=== PATIENT | male | born 1995 | race Caucasian/White ===

== ENCOUNTER 2018-04-15 15:54 | Emergency (ER) | payer OTHER, SELFPAY ==
[2018-04-15] VITALS (8 sets, daily range): BP systolic 108–124; BP diastolic 55–69; PULSE 65–82; RESP 11–17; TEMP 36.8–37.5; O2SAT 97–100; BMI 20.3
--- NOTE | 2018-04-15 17:59 | DI.CT.S_ITS ---
PROCEDURE: CT HEAD/BRAIN WO CON INDICATIONS: Syncopal episode TECHNIQUE: Noncontrast 4.5 mm thick angled axial sections acquired from the foramen magnum to the vertex, with coronal and sagittal reformats. For radiation dose reduction, the following was used: automated exposure control, adjustment of mA and/or kV according to patient size. COMPARISON: None. FINDINGS: Image quality: Excellent. CSF spaces: Basal cisterns are patent. No extra-axial fluid collections. Ventricles are normal in size and shape. Brain: No midline shift. No intracranial masses or hemorrhage. Trimble-white matter interface is normal. Skull and face: Calvarium and visualized facial bones are intact, without suspicious lesions. Sinuses: Visualized sinuses and mastoids are clear. IMPRESSION: No acute intracranial disease process. Dictated by: Ester Gan MD, PhD on 04/15/2018 at 18:46 Approved by: Ester Gan MD, PhD on 04/15/2018 at 18:48
--- NOTE | 2018-04-15 17:59 | DI.RAD.S_ITS ---
PROCEDURE: XR CHEST 1V INDICATIONS: Syncopal episode TECHNIQUE: One view of the chest was acquired. COMPARISON: None. FINDINGS: Surgical changes and devices: None. Lungs and pleura: No pleural effusions or pneumothorax. Lungs are clear. Mediastinum: Mediastinal contours appear normal. Heart size is normal. Bones and chest wall: No suspicious bony lesions. Overlying soft tissues appear unremarkable. IMPRESSION: No acute cardiopulmonary disease process. Dictated by: Ester Gan MD, PhD on 04/15/2018 at 18:45 Approved by: Ester Gan MD, PhD on 04/15/2018 at 18:45
[2018-04-15] MEDS: SODIUM CHLORIDE 0.9% 1,000 ML 1000 ML IV (18:35)
[2018-04-15 18:51] LABS: Add Manual Diff / Slide Review NO; Basophils Percent Auto 0.2 % (0-2); Eosinophils Percent Auto 0.2 % (2-4); Hematocrit 42.6 % (41-53); Hemoglobin 14.6 g/dL (13.5-17.5); Lymphocytes Percent Auto 6.5 % (25-40); Mean Corpuscular HGB Conc 34.3 % (30-36); Mean Corpuscular Hemoglobin 29.3 PG (26-34); Mean Corpuscular Volume 85.5 fL (80-100); Monocytes Percent Auto 5.2 % (3-14); Neutrophils Absolute Auto 14700 /uL (3000-5900); Neutrophils Percent Auto 87.9 % (50-75); Platelet Count 257 X10^3/uL (150-400); Red Blood Cell Count 4.98 X10^6/uL (4.5-5.9); Red Cell Distribution Width 12.9 % (11.6-14.8); White Blood Cell Count 16.7 X10^3/uL (4.5-11.0)
[2018-04-15 19:09] LABS: Urine Amphetamines Negative (Negative); Urine Barbiturates Negative (Negative); Urine Benzodiazepines Negative (Negative); Urine Cocaine Negative (Negative); Urine MDMA Negative (Negative); Urine Methadone Negative (Negative); Urine Methamphetamines Negative (Negative); Urine Morphine/Opi cutoff 2000 Negative (Negative); Urine Oxycodone Negative (Negative); Urine Phencyclidine Negative (Negative); Urine THC Positive (Negative); Urine Tricyclic Antidepressant Negative (Negative)
[2018-04-15 19:10] LABS: Bacteria Urine Few (2-10); Culture Indicated Urine Cult Not Indicated; Mucus Urine 1+ (Negative); RBC Urine 0-1/HPF (0-5/HPF); WBC Urine 0-1/HPF (0-5/HPF)
[2018-04-15 19:20] LABS: Alanine Aminotransferase 26 IU/L (21-72); Albumin 4.3 g/dL (3.5-5.0); Albumin Globulin Ratio 1.9 (1.0-2.8); Alkaline Phosphatase 54 U/L (38-126); Aspartate Aminotransferase 22 IU/L (17-59); BUN Creatinine Ratio 16.7 (6-22); Bilirubin Total 0.8 mg/dL (0.2-1.3); Blood Urea Nitrogen 15 mg/dL (9-20); Calcium 8.5 mg/dL (8.4-10.2); Carbon Dioxide 26 mmol/L (22-32); Chloride 105 mmol/L (98-107); Creatine Kinase 90 U/L (55-170); Estimated Glomerular Filt Rate > 60.0 mL/min (>60); Globulin 2.3 g/dL (1.7-4.1); Glucose 96 mg/dL (70-100); HEMOLYSIS < 15 (0-50); Lipase 30 U/L (23-300); Potassium 4.2 mmol/L (3.4-5.1); Sodium 142 mmol/L (137-145); Total Protein 6.6 g/dL (6.3-8.2)
[2018-04-15 19:32] LABS: Troponin I < 0.012 ng/mL (0.01-0.034)
--- NOTE | 2018-04-15 20:06 | ED_ITS ---
HPI - Head Injury <RICHARD Mclaughlin - Last Filed: 04/15/18 20:11> General Chief complaint: Head Injury Stated complaint: LOC HIT HIS HEAD ON CONCRETE FLOOR Time Seen by Provider: 04/15/18 17:45 Source: patient Mode of arrival: ambulatory Limitations: no limitations History of Present Illness HPI Narrative: 23-year-old healthy male no prior medical history nonsmoker here for complaint of having a syncopal episode earlier today. He states that he was standing when he started to feel lightheaded and went to go sit down then reports passing out briefly and falling hitting his chin and lower lip on the ground. He awoke shortly after less than a minute and reports having bleeding from his lower lip. He denies any headache no neck pain no chest pain no shortness of breath. He denies any abdominal pain. Pain is limited to his lower lip. He denies having any history of syncopal events. He states that he has been eating and drinking fluids well. Denies any fevers. No other concerns or complaints at this time. Related Data Home Medications Medication Instructions Recorded Confirmed No Known Home Medications 04/15/18 04/15/18 Allergies Allergy/AdvReac Type Severity Reaction Status Date / Time No Known Drug Allergies Allergy Verified 04/15/18 16:05 Review of Systems <RICHARD Mclaughlin - Last Filed: 04/15/18 20:11> Constitutional Denies chills, Denies fever(s), Denies lethargy and Denies weakness Eyes Denies change in vision, Denies eye discharge, Denies irritation and Denies loss of vision ENT Ears, Nose, Mouth, and Throat: Denies change in voice, Denies neck pain and Denies sore throat Comments: Laceration lower lip Cardiovascular Denies chest pain, Reports syncope, Denies irregular heart rhythm, Denies lightheadedness, Denies palpitations, Denies dyspnea, Denies dyspnea on exertion and Denies orthopnea Respiratory Denies cough, Denies dyspnea, Denies dyspnea on exertion and Denies wheezing Genitourinary Denies hematuria, Denies flank pain, Denies urinary incontinence and Denies urinary urgency Musculoskeletal Denies neck pain Integumentary/Breasts Denies pruritus, Denies erythema, Denies rash and Denies wounds Neurologic Denies confusion, Reports syncope, Denies loss of vision and Denies weakness Psychiatric Denies anxiety, Denies confusion, Denies depression, Denies homicidal ideation and Denies suicidal ideation Endocrine Denies palpitations Allergic/Immunologic Denies wheezing Exam <RICHARD Mclaughlin - Last Filed: 04/15/18 20:11> Initial Vital Signs Initial Vital Signs: Vital Signs Temperature 99.5 F 04/15/18 16:03 Pulse Rate 82 04/15/18 16:03 Respiratory Rate 14 04/15/18 16:03 Blood Pressure 108/69 04/15/18 16:03 Pulse Oximetry 98 04/15/18 16:03 Const General: cooperative and well developed Nutritional Appearance: well nourished Orientation: alert, awake, oriented x3 and not confused HENMT Head: normal to inspection, normocephalic and atraumatic Ears: external ears normal Nose: external nose normal and No nasal discharge Face and sinus: sinuses nontender and face symmetric Mouth: oropharynx normal, moist mucous membranes and other (1.5 irregular laceration inner lower lip not through and through. No signs of dental trauma.) Teeth and gingiva: dentition normal Throat: tonsils normal Eyes General: appearance normal, both eyes and all related structures Eyelids: eyelids normal Conjunctivae: conjunctivae normal Sclera: sclerae normal Pupils: PERRL EOM: EOM intact bilaterally Neck Neck: normal visual inspection, trachea midline, No lymphadenopathy, No midline deformity and No JVD Lymphatic: No lymphedema Chest Chest: normal inspection of the chest Resp Effort & Inspection: normal respiratory effort, able to speak in complete sentences, no respiratory distress and no use of accessory muscles Auscultation: clear to auscultation bilaterally, no rales, no rhonchi and no wheezes Cardio Rate: regular rate Rhythm: regular rhythm Heart Sounds: no click, no gallops, no murmurs and no rubs Pulses: normal peripheral pulses GI Inspection: non-distended Palpation: soft, no hepatosplenomegaly, No guarding, No pulsatile mass and No tender Auscultation: normal bowel sounds Skin General: no rashes or lesions noted, No jaundice and No petechiae Neuro General: alert, oriented x3, gait normal and no focal motor deficits Speech: speech normal Extrem General: normal to inspection Right upper extremity: normal to inspection and full ROM Left upper extremity: normal to inspection and full ROM Right lower extremity: normal to inspection and full ROM Left lower extremity: normal to inspection and full ROM <DO Zen Riley Last Filed: 04/16/18 05:44> Initial Vital Signs Initial Vital Signs: Vital Signs Temperature 99.5 F 04/15/18 16:03 Pulse Rate 82 04/15/18 16:03 Respiratory Rate 14 04/15/18 16:03 Blood Pressure 108/69 04/15/18 16:03 Pulse Oximetry 98 04/15/18 16:03 Course <RICHARD Mclaughlin - Last Filed: 04/15/18 20:11> Orders Ordered: ED Orders 04/15/18 21:06 Troponin I Stat Discontinued Medications Sodium Chloride (Normal Saline 0.9%) 1,000 mls @ 1,000 mls/hr IV BOLUS ONE Stop: 04/15/18 18:58 Last Infusion: 04/15/18 19:50 Dose: 0 mls/hr Admin: 04/15/18 18:35 Dose: 1,000 mls/hr Vital Signs - 8 hr 04/15/18 22:10 Temperature 98.2 F Pulse Rate 65 Respiratory Rate 17 Blood Pressure 123/61 Pulse Oximetry 100 <DO Zen Riley Last Filed: 04/16/18 05:44> Orders Ordered: ED Orders 04/15/18 21:06 Troponin I Stat Discontinued Medications Sodium Chloride (Normal Saline 0.9%) 1,000 mls @ 1,000 mls/hr IV BOLUS ONE Stop: 04/15/18 18:58 Last Infusion: 04/15/18 19:50 Dose: 0 mls/hr Admin: 04/15/18 18:35 Dose: 1,000 mls/hr Vital Signs - 8 hr 04/15/18 22:10 Temperature 98.2 F Pulse Rate 65 Respiratory Rate 17 Blood Pressure 123/61 Pulse Oximetry 100 MDM - Head Injury <RICHARD Mclaughlin Last Filed: 04/15/18 20:11> Lab Data Result diagrams: 04/15/18 18:55 04/15/18 18:55 Lab Results 04/15/18 04/15/18 04/15/18 Range/Units 18:30 18:30 18:55 WBC 16.7 H (4.5-11.0) X10^3/uL RBC 4.98 (4.5-5.9) X10^6/uL Hgb 14.6 (13.5-17.5) g/dL Hct 42.6 (41-53) % MCV 85.5 (80-100) fL MCH 29.3 (26-34) PG MCHC 34.3 (30-36) % RDW 12.9 (11.6-14.8) % Plt Count 257 (150-400) X10^3/uL Neut % (Auto) 87.9 H (50-75) % Lymph % (Auto) 6.5 L (25-40) % [place] % (Auto) 5.2 (3-14) % Eos % (Auto) 0.2 L (2-4) % Baso % (Auto) 0.2 (0-2) % Neut # (Auto) 82005 H (3920-5548) /uL Sodium (137-145) mmol/L Potassium (3.4-5.1) mmol/L Chloride (98-107) mmol/L Carbon Dioxide (22-32) mmol/L BUN (9-20) mg/dL Creatinine (0.66-1.25) mg/dL Estimated GFR (>60) mL/min BUN/Creatinine Ratio (6-22) Glucose (70-100) mg/dL Calcium (8.4-10.2) mg/dL Total Bilirubin (0.2-1.3) mg/dL AST (17-59) IU/L ALT (21-72) IU/L Alkaline Phosphatase (38-126) U/L Total Creatine Kinase (55-170) U/L Troponin I (0.01-0.034) ng/mL Total Protein (6.3-8.2) g/dL Albumin (3.5-5.0) g/dL Globulin (1.7-4.1) g/dL Albumin/Globulin Ratio (1.0-2.8) Lipase (23-300) U/L Urine RBC 0-1/hpf (0-5/HPF) Urine WBC 0-1/hpf (0-5/HPF) Urine Bacteria Few (2-10) H (None) Urine Mucus 1+ H (Negative) Ur Culture Indicated? Cult not indicated Micro UA Comment Not Reportable Urine Opiates Screen Negative (Negative) Ur Oxycodone Screen Negative (Negative) Urine Methadone Screen Negative (Negative) Ur Barbiturates Screen Negative (Negative) U Tricyclic Antidepress Negative (Negative) Ur Phencyclidine Scrn Negative (Negative) Ur Amphetamines Screen Negative (Negative) U Methamphetamines Scrn Negative (Negative) Ur MDMA Scrn (Ecstasy) Negative (Negative) U Benzodiazepines Scrn Negative (Negative) Urine Cocaine Screen Negative (Negative) U Marijuana (THC) Screen Positive H (Negative) 04/15/18 04/15/18 Range/Units 18:55 21:06 WBC (4.5-11.0) X10^3/uL RBC (4.5-5.9) X10^6/uL Hgb (13.5-17.5) g/dL Hct (41-53) % MCV (80-100) fL MCH (26-34) PG MCHC (30-36) % RDW (11.6-14.8) % Plt Count (150-400) X10^3/uL Neut % (Auto) (50-75) % Lymph % (Auto) (25-40) % [place] % (Auto) (3-14) % Eos % (Auto) (2-4) % Baso % (Auto) (0-2) % Neut # (Auto) (4740-2588) /uL Sodium 142 (137-145) mmol/L Potassium 4.2 (3.4-5.1) mmol/L Chloride 105 (98-107) mmol/L Carbon Dioxide 26 (22-32) mmol/L BUN 15 (9-20) mg/dL Creatinine 0.90 (0.66-1.25) mg/dL Estimated GFR > 60.0 (>60) mL/min BUN/Creatinine Ratio 16.7 (6-22) Glucose 96 (70-100) mg/dL Calcium 8.5 (8.4-10.2) mg/dL Total Bilirubin 0.8 (0.2-1.3) mg/dL AST 22 (17-59) IU/L ALT 26 (21-72) IU/L Alkaline Phosphatase 54 (38-126) U/L Total Creatine Kinase 90 (55-170) U/L Troponin I < 0.012 < 0.012 (0.01-0.034) ng/mL Total Protein 6.6 (6.3-8.2) g/dL Albumin 4.3 (3.5-5.0) g/dL Globulin 2.3 (1.7-4.1) g/dL Albumin/Globulin Ratio 1.9 (1.0-2.8) Lipase 30 (23-300) U/L Urine RBC (0-5/HPF) Urine WBC (0-5/HPF) Urine Bacteria (None) Urine Mucus (Negative) Ur Culture Indicated? Micro UA Comment Urine Opiates Screen (Negative) Ur Oxycodone Screen (Negative) Urine Methadone Screen (Negative) Ur Barbiturates Screen (Negative) U Tricyclic Antidepress (Negative) Ur Phencyclidine Scrn (Negative) Ur Amphetamines Screen (Negative) U Methamphetamines Scrn (Negative) Ur MDMA Scrn (Ecstasy) (Negative) U Benzodiazepines Scrn (Negative) Urine Cocaine Screen (Negative) U Marijuana (THC) Screen (Negative) Point of Care Testing Glucose POC 95 Urine Dip Bedside Urine Glucose Negative Bedside Urine Bilirubin - Negative Bedside Urine Ketone ++ 40 Urine Specific [place] 1.030 Bedside Urine Occult Blood - Negative Bedside Urine pH 6.0 Bedside Urine Protein - Negative Bedside Urine Urobilinogen - Negative Bedside Urine Nitrite - Negative Bedside Urine Leukocytes - Negative Esterase Imaging Data Chest x-ray: Radiologist's impression: PROCEDURE: XR CHEST 1V INDICATIONS: Syncopal episode TECHNIQUE: One view of the chest was acquired. COMPARISON: None. FINDINGS: Surgical changes and devices: None. Lungs and pleura: No pleural effusions or pneumothorax. Lungs are clear. Mediastinum: Mediastinal contours appear normal. Heart size is normal. Bones and chest wall: No suspicious bony lesions. Overlying soft tissues appear unremarkable. IMPRESSION: No acute cardiopulmonary disease process. Dictated by: Ester Gan MD, PhD on 04/15/2018 at 18:45 Approved by: Ester Gan MD, PhD on 04/15/2018 at 18:45 CT scan - head: Radiologist's impression: [address] [address] [address] Scan Report Signed Patient: Juan Carlos Alvarez MR#: [id number] : 1995 Acct:[id number] Age/Sex: 23 / M Date of Service: 04/15/18 Loc: ED Accession Number: [id number] Procedure: CT head/brain wo con Ordering Provider: Kp Molina PROCEDURE: CT HEAD/BRAIN WO CON INDICATIONS: Syncopal episode TECHNIQUE: Noncontrast 4.5 mm thick angled axial sections acquired from the foramen magnum to the vertex, with coronal and sagittal reformats. For radiation dose reduction, the following was used: automated exposure control, adjustment of mA and/or kV according to patient size. COMPARISON: None. FINDINGS: Image quality: Excellent. CSF spaces: Basal cisterns are patent. No extra-axial fluid collections. Ventricles are normal in size and shape. Brain: No midline shift. No intracranial masses or hemorrhage. Trimble-white matter interface is normal. Skull and face: Calvarium and visualized facial bones are intact, without suspicious lesions. Sinuses: Visualized sinuses and mastoids are clear. IMPRESSION: No acute intracranial disease process. Dictated by: Ester Gan MD, PhD on 04/15/2018 at 18:46 Approved by: Ester Gan MD, PhD on 04/15/2018 at 18:48 ECG Data Interpretation: EKG shows normal sinus rhythm with no ST elevation or depression. No ectopy. Ventricular rate is 77. Pr interval 141. QRS duration 87. QTC 396. MDM Narrative Medical decision making narrative: EKG was obtained was obtained and shows sinus rhythm with no ST elevation or depression. No ectopy. CBC and Chem panel were obtained were unremarkable. 2 sets of Troponin was obtained and was negative. CT of the head was obtained and was negative for any acute findings. Chest x-ray was obtained was negative for any acute findings. Laceration to the lower inner lip will let closed by secondary intention. [id number] Tylenol or Motrin as needed for any discomfort. Plenty of fluids. Follow up with primary care provider in the next few days for re-evaluation. Signs and symptoms presents as a vasovagal response. For any worsening symptoms return to the emergency room. <Tho Acevedo, - Last Filed: 04/16/18 05:44> Lab Data Lab Results 04/15/18 04/15/18 04/15/18 Range/Units 18:30 18:30 18:55 WBC 16.7 H (4.5-11.0) X10^3/uL RBC 4.98 (4.5-5.9) X10^6/uL Hgb 14.6 (13.5-17.5) g/dL Hct 42.6 (41-53) % MCV 85.5 (80-100) fL MCH 29.3 (26-34) PG MCHC 34.3 (30-36) % RDW 12.9 (11.6-14.8) % Plt Count 257 (150-400) X10^3/uL Neut % (Auto) 87.9 H (50-75) % Lymph % (Auto) 6.5 L (25-40) % [place] % (Auto) 5.2 (3-14) % Eos % (Auto) 0.2 L (2-4) % Baso % (Auto) 0.2 (0-2) % Neut # (Auto) 00601 H (4747-1247) /uL Sodium (137-145) mmol/L Potassium (3.4-5.1) mmol/L Chloride (98-107) mmol/L Carbon Dioxide (22-32) mmol/L BUN (9-20) mg/dL Creatinine (0.66-1.25) mg/dL Estimated GFR (>60) mL/min BUN/Creatinine Ratio (6-22) Glucose (70-100) mg/dL Calcium (8.4-10.2) mg/dL Total Bilirubin (0.2-1.3) mg/dL AST (17-59) IU/L ALT (21-72) IU/L Alkaline Phosphatase (38-126) U/L Total Creatine Kinase (55-170) U/L Troponin I (0.01-0.034) ng/mL Total Protein (6.3-8.2) g/dL Albumin (3.5-5.0) g/dL Globulin (1.7-4.1) g/dL Albumin/Globulin Ratio (1.0-2.8) Lipase (23-300) U/L Urine RBC 0-1/hpf (0-5/HPF) Urine WBC 0-1/hpf (0-5/HPF) Urine Bacteria Few (2-10) H (None) Urine Mucus 1+ H (Negative) Ur Culture Indicated? Cult not indicated Micro UA Comment Not Reportable Urine Opiates Screen Negative (Negative) Ur Oxycodone Screen Negative (Negative) Urine Methadone Screen Negative (Negative) Ur Barbiturates Screen Negative (Negative) U Tricyclic Antidepress Negative (Negative) Ur Phencyclidine Scrn Negative (Negative) Ur Amphetamines Screen Negative (Negative) U Methamphetamines Scrn Negative (Negative) Ur MDMA Scrn (Ecstasy) Negative (Negative) U Benzodiazepines Scrn Negative (Negative) Urine Cocaine Screen Negative (Negative) U Marijuana (THC) Screen Positive H (Negative) 04/15/18 04/15/18 Range/Units 18:55 21:06 WBC (4.5-11.0) X10^3/uL RBC (4.5-5.9) X10^6/uL Hgb (13.5-17.5) g/dL Hct (41-53) % MCV (80-100) fL MCH (26-34) PG MCHC (30-36) % RDW (11.6-14.8) % Plt Count (150-400) X10^3/uL Neut % (Auto) (50-75) % Lymph % (Auto) (25-40) % [place] % (Auto) (3-14) % Eos % (Auto) (2-4) % Baso % (Auto) (0-2) % Neut # (Auto) (9945-6134) /uL Sodium 142 (137-145) mmol/L Potassium 4.2 (3.4-5.1) mmol/L Chloride 105 (98-107) mmol/L Carbon Dioxide 26 (22-32) mmol/L BUN 15 (9-20) mg/dL Creatinine 0.90 (0.66-1.25) mg/dL Estimated GFR > 60.0 (>60) mL/min BUN/Creatinine Ratio 16.7 (6-22) Glucose 96 (70-100) mg/dL Calcium 8.5 (8.4-10.2) mg/dL Total Bilirubin 0.8 (0.2-1.3) mg/dL AST 22 (17-59) IU/L ALT 26 (21-72) IU/L Alkaline Phosphatase 54 (38-126) U/L Total Creatine Kinase 90 (55-170) U/L Troponin I < 0.012 < 0.012 (0.01-0.034) ng/mL Total Protein 6.6 (6.3-8.2) g/dL Albumin 4.3 (3.5-5.0) g/dL Globulin 2.3 (1.7-4.1) g/dL Albumin/Globulin Ratio 1.9 (1.0-2.8) Lipase 30 (23-300) U/L Urine RBC (0-5/HPF) Urine WBC (0-5/HPF) Urine Bacteria (None) Urine Mucus (Negative) Ur Culture Indicated? Micro UA Comment Urine Opiates Screen (Negative) Ur Oxycodone Screen (Negative) Urine Methadone Screen (Negative) Ur Barbiturates Screen (Negative) U Tricyclic Antidepress (Negative) Ur Phencyclidine Scrn (Negative) Ur Amphetamines Screen (Negative) U Methamphetamines Scrn (Negative) Ur MDMA Scrn (Ecstasy) (Negative) U Benzodiazepines Scrn (Negative) Urine Cocaine Screen (Negative) U Marijuana (THC) Screen (Negative) Point of Care Testing Glucose POC 95 Urine Dip Bedside Urine Glucose Negative Bedside Urine Bilirubin - Negative Bedside Urine Ketone ++ 40 Urine Specific [place] 1.030 Bedside Urine Occult Blood - Negative Bedside Urine pH 6.0 Bedside Urine Protein - Negative Bedside Urine Urobilinogen - Negative Bedside Urine Nitrite - Negative Bedside Urine Leukocytes - Negative Esterase Discharge Plan Departure Patient Disposition: Home Clinical Impression: Episode of syncope Discharge Date/Time: 04/15/18 22:12 Interventions: ED Discharge Assessment Last Done: 04/15/18 22:10 Instructions: DI for Syncope in Adults (Fainting) Activity Restrictions/Additional Instructions: EKG chest x-ray and CT the head were obtained were unremarkable. Laboratory results were negative. Signs and symptoms presents as a vasovagal response which can cause fainting. Laceration to the inner lip will close on its own. Irrigate with water a few times a day and after meals to prevent food particles becoming trapped and laceration. Use [id number] Tylenol or Motrin as needed for any discomfort. Follow up with her primary care provider in the next few days for re-evaluation. For any worsening symptoms return to the emergency room. Prescriptions: No Action No Known Home Medications RF: 0 Referrals: Justa Hart MD [Non-Staff] - <Tho Aceveod DO - Last Filed: 04/16/18 05:44> Cosign ED Attending Darlynature Attestation: I was immediately available in the department for consultation. Documentation has been reviewed. I agree with assessment and plan.
[2018-04-15 21:39] LABS: Troponin I < 0.012 ng/mL (0.01-0.034)
== END 2018-04-15 22:12 | disposition home or self-care (01) ==
PROVIDERS: Emergency Provider Nurse Practitioner Family
DX: R55 Syncope and collapse (principal); W18.30XA Fall on same level, unspecified, initial encounter
CPT/HCPCS: 36415; 36591; 70450; 71045; 80053; 80305; 81003; 81015; 82550; 82553; 82962; 83690; 84484; 85025; 93005; 93010; 96360; 99284; 99285

== ENCOUNTER 2019-07-18 14:21 | Emergency (ER) | payer OTHER, MEDICAID, SELFPAY ==
[2019-07-18 14:30] VITALS: BP 139/82; PULSE 98; RESP 16; TEMP 36.5; O2SAT 99
[2019-07-18 14:34] VITALS: BMI 18.8
[2019-07-18 15:11] LABS: Add Manual Diff / Slide Review NO; Basophils Absolute Auto 100 /uL (0-100); Basophils Percent Auto 0.6 % (0-2); Eosinophils Absolute Auto 200 /uL (0-450); Eosinophils Percent Auto 1.8 % (2-4); Hematocrit 43.3 % (41-53); Hemoglobin 14.8 g/dL (13.5-17.5); Lymphocytes Absolute Auto 2300 /uL (1100-4500); Lymphocytes Percent Auto 25.6 % (25-40); Mean Corpuscular HGB Conc 34.2 % (30-36); Mean Corpuscular Volume 87.6 fL (80-100); Monocytes Absolute Auto 500 /uL (0-900); Monocytes Percent Auto 5.4 % (3-14); Neutrophils Absolute Auto 5900 /uL (1500-7000); Neutrophils Percent Auto 66.6 % (50-75); Platelet Count 283 X10^3/uL (150-400); Red Blood Cell Count 4.95 X10^6/uL (4.5-5.9); Red Cell Distribution Width 12.5 % (11.6-14.8); White Blood Cell Count 8.9 X10^3/uL (4.5-11.0)
[2019-07-18 15:13] LABS: Ur Creatinine Normal (Normal); Ur Specific Gravity Normal (Normal); Urine pH Normal (Normal)
[2019-07-18 15:14] LABS: UR Morphine/Opiate cutoff 300 Negative (Negative); Urine Amphetamines Negative (Negative); Urine Barbiturates Negative (Negative); Urine Benzodiazepines Negative (Negative); Urine Cocaine Negative (Negative); Urine MDMA Negative (Negative); Urine Methadone Negative (Negative); Urine Methamphetamines Negative (Negative); Urine Oxycodone Negative (Negative); Urine Phencyclidine Negative (Negative); Urine Tetrahydrocannabinol Positive (Negative); Urine Tricyclic Antidepressant Negative (Negative)
[2019-07-18 15:15] LABS: Acetaminophen < 10 ug/mL (10-30); Alanine Aminotransferase 17 IU/L (<50); Albumin 5.1 g/dL (3.5-5.0); Albumin Globulin Ratio 1.8 (1.0-2.8); Alkaline Phosphatase 63 U/L (38-126); Aspartate Aminotransferase 27 IU/L (17-59); Bilirubin Total 0.6 mg/dL (0.2-1.3); Blood Urea Nitrogen 16 mg/dL (9-20); Calcium 9.6 mg/dL (8.4-10.2); Carbon Dioxide 30 mmol/L (22-32); Chloride 102 mmol/L (98-107); Estimated Glomerular Filt Rate > 60.0 mL/min (>60); Ethanol (ETOH) < 10 mg/dL; Globulin 2.8 g/dL (1.7-4.1); Glucose 78 mg/dL (70-100); HEMOLYSIS < 15 (0-50); Potassium 3.9 mmol/L (3.4-5.1); Salicylate < 1.0 mg/dL (<20); Sodium 142 mmol/L (137-145); Total Protein 7.9 g/dL (6.3-8.2)
--- NOTE | 2019-07-18 15:48 | ED_ITS ---
HPI - Psych General Chief Complaint: Psychiatric Symptoms Stated Complaint: suicidal Time Seen by Provider: 07/18/19 15:47 Source: patient Mode of arrival: Ambulatory History of Present Illness HPI Narrative: 24-year-old gentleman with waxing and waning episodes of depression worse recently. No specific episode distended colon relation of life events leading to significant suicidal ideation. He does have a plan to get in his car and drive off a bridge. He has not yet acted on this and he does have a car to follow through. He does not feel safe going home. He is interested in inpatient psychiatric care. He is not currently on antidepressants and has not been on them in the past. MD complaint: suicidal ideation and feels depressed Onset (ago): week(s) Duration: getting worse Related Data Home Medications Medication Instructions Recorded Confirmed No Known Home Medications 04/15/18 07/18/19 Allergies Allergy/AdvReac Type Severity Reaction Status Date / Time No Known Drug Allergies Allergy Verified 07/18/19 14:39 Review of Systems Review of Systems Narrative: Decreased eating trouble sleeping no self-harm intermittent abdominal pain mild. Denies alcohol or illicit drug use. Occasional marijuana use none for the last 2 weeks. Remainder of review is otherwise unremarkable Patient History Medical History No significant past medical history (Acute) Social History Smoking Status: Never smoker Smoking Status: Never smoker alcohol intake frequency: 0-2 drinks per day Substance Use Type: does not use Exam Narrative Exam Narrative: General: Healthy appearing, in no acute distress. Able to give a complete and full history cooperative. Well-nourished well-developed HEENT: Moist mucous membranes, normal sclera with reactive pupils, Neck: No JVD, supple Respiratory: Lungs are clear to auscultation, no wheezing no rales no rhonchi. Full and symmetrical air movement Cardiac: Regular rate and rhythm no murmurs no bruits Abdomen: Soft nontender good bowel tones, no flank pain Skin: Warm and dry, no rashes, no signs of self-harm Neurologic: Grossly neurologically intact with no obvious asymmetries or abnormalities Extremities: No trauma, well perfused Psych: appropriate insight, flat affect, a moderate eye contact. Speech is measured and appropriate Initial Vital Signs Initial Vital Signs: Vital Signs Temperature 97.7 F 07/18/19 14:30 Pulse Rate 98 H 07/18/19 14:30 Respiratory Rate 16 07/18/19 14:30 Blood Pressure 139/82 07/18/19 14:30 Pulse Oximetry 99 07/18/19 14:30 Course Orders Ordered: ED Orders 07/18/19 14:55 Acetaminophen Stat Complete Blood Count AUTO DIFF Stat Comprehensive Metabolic Panel Stat Ethanol (ETOH) Stat Free T4, Direct Thyroxine Stat Salicylate Stat Thyroid Stimulating Hormone Stat 07/18/19 15:00 Urine Drug Screen, Rapid Stat 07/18/19 15:55 Consult to [facility] [place] [facility] Operator Stat Reevaluation(s) Reevaluation #1: This poke with the clinical social work therapist. Apparently there are voluntary inpatient beds available at [facility]. His chart has been sent for review with anticipation of transfer to [facility] for admission for suicidal ideation Time: 16:52 Vital Signs Vital signs: Vital Signs - 8 hr 07/18/19 14:30 Temperature 97.7 F Pulse Rate 98 H Respiratory Rate 16 Blood Pressure [Left Arm] 139/82 Pulse Oximetry 99 MDM - Psych Differential Diagnosis Differential diagnosis: Likely acute psychosis, suicidal ideation and acute anx iety Medical Records Attestation: I reviewed the patient's medical records. Lab Data Attestation: I reviewed the patient's lab results. Result diagrams: 07/18/19 14:55 07/18/19 14:55 Labs: Lab Results 07/18/19 07/18/19 07/18/19 Range/Units 14:55 14:55 14:55 WBC 8.9 (4.5-11.0) X10^3/uL RBC 4.95 (4.5-5.9) X10^6/uL Hgb 14.8 (13.5-17.5) g/dL Hct 43.3 (41-53) % MCV 87.6 (80-100) fL MCH 30.0 (26-34) PG MCHC 34.2 (30-36) % RDW 12.5 (11.6-14.8) % Plt Count 283 (150-400) X10^3/uL Neut % (Auto) 66.6 (50-75) % Lymph % (Auto) 25.6 (25-40) % [place] % (Auto) 5.4 (3-14) % Eos % (Auto) 1.8 L (2-4) % Baso % (Auto) 0.6 (0-2) % Neut # (Auto) 5900 (0751-3701) /uL Lymph # (Auto) 2300 (7830-3425) /uL [place] # (Auto) 500 (0-900) /uL Eos # (Auto) 200 (0-450) /uL Baso # (Auto) 100 (0-100) /uL Sodium 142 (137-145) mmol/L Potassium 3.9 (3.4-5.1) mmol/L Chloride 102 (98-107) mmol/L Carbon Dioxide 30 (22-32) mmol/L BUN 16 (9-20) mg/dL Creatinine 0.80 (0.66-1.25) mg/dL Estimated GFR > 60.0 (>60) mL/min BUN/Creatinine Ratio 20.0 (6-22) Glucose 78 (70-100) mg/dL Calcium 9.6 (8.4-10.2) mg/dL Total Bilirubin 0.6 (0.2-1.3) mg/dL AST 27 (17-59) IU/L ALT 17 (<50) IU/L Alkaline Phosphatase 63 (38-126) U/L Total Protein 7.9 (6.3-8.2) g/dL Albumin 5.1 H (3.5-5.0) g/dL Globulin 2.8 (1.7-4.1) g/dL Albumin/Globulin Ratio 1.8 (1.0-2.8) TSH 1.82 (0.47-4.68) uIU/mL Free T4 0.87 (0.78-2.19) ng/dL Salicylates < 1.0 (<20) mg/dL U Morph 300 ng/mL cutoff (Negative) Ur Oxycodone Screen (Negative) Urine Methadone Screen (Negative) Acetaminophen < 10 L (10-30) ug/mL Ur Barbiturates Screen (Negative) U Tricyclic Antidepress (Negative) Ur Phencyclidine Scrn (Negative) Ur Amphetamines Screen (Negative) U Methamphetamines Scrn (Negative) Ur MDMA Scrn (Ecstasy) (Negative) U Benzodiazepines Scrn (Negative) Urine Cocaine Screen (Negative) U Marijuana (THC) Screen (Negative) Ethyl Alcohol < 10 ( - 10) mg/dL 07/18/19 Range/Units 15:00 WBC (4.5-11.0) X10^3/uL RBC (4.5-5.9) X10^6/uL Hgb (13.5-17.5) g/dL Hct (41-53) % MCV (80-100) fL MCH (26-34) PG MCHC (30-36) % RDW (11.6-14.8) % Plt Count (150-400) X10^3/uL Neut % (Auto) (50-75) % Lymph % (Auto) (25-40) % [place] % (Auto) (3-14) % Eos % (Auto) (2-4) % Baso % (Auto) (0-2) % Neut # (Auto) (3847-3868) /uL Lymph # (Auto) (0736-2061) /uL [place] # (Auto) (0-900) /uL Eos # (Auto) (0-450) /uL Baso # (Auto) (0-100) /uL Sodium (137-145) mmol/L Potassium (3.4-5.1) mmol/L Chloride (98-107) mmol/L Carbon Dioxide (22-32) mmol/L BUN (9-20) mg/dL Creatinine (0.66-1.25) mg/dL Estimated GFR (>60) mL/min BUN/Creatinine Ratio (6-22) Glucose (70-100) mg/dL Calcium (8.4-10.2) mg/dL Total Bilirubin (0.2-1.3) mg/dL AST (17-59) IU/L ALT (<50) IU/L Alkaline Phosphatase (38-126) U/L Total Protein (6.3-8.2) g/dL Albumin (3.5-5.0) g/dL Globulin (1.7-4.1) g/dL Albumin/Globulin Ratio (1.0-2.8) TSH (0.47-4.68) uIU/mL Free T4 (0.78-2.19) ng/dL Salicylates (<20) mg/dL U Morph 300 ng/mL cutoff Negative (Negative) Ur Oxycodone Screen Negative (Negative) Urine Methadone Screen Negative (Negative) Acetaminophen (10-30) ug/mL Ur Barbiturates Screen Negative (Negative) U Tricyclic Antidepress Negative (Negative) Ur Phencyclidine Scrn Negative (Negative) Ur Amphetamines Screen Negative (Negative) U Methamphetamines Scrn Negative (Negative) Ur MDMA Scrn (Ecstasy) Negative (Negative) U Benzodiazepines Scrn Negative (Negative) Urine Cocaine Screen Negative (Negative) U Marijuana (THC) Screen Positive H (Negative) Ethyl Alcohol ( - 10) mg/dL Urine Dip Bedside Urine Glucose Negative Bedside Urine Bilirubin - Negative Bedside Urine Ketone - Negative Urine Specific [place] 1.015 Bedside Urine Occult Blood - Negative Bedside Urine pH 8.0 Bedside Urine Protein +/- 15 Bedside Urine Urobilinogen - Negative Bedside Urine Nitrite - Negative Bedside Urine Leukocytes - Negative Esterase MDM Narrative Medical decision making narrative: 24-year-old young man with intermittent episodes of depression over the last years. He does not have a psychiatrist and has not been on antidepressants. No regular alcohol or recreational drug use. Worsening episodes of depression recently to the point that he is currently suicidal and asking for help. Remains actively suicidal and is willing to consider inpatient care. He is medically cleared for psychiatric admission to [facility] and will be transported by ambulance. Appropriate [employer]ra forms have been filled out Discharge Plan Departure Patient Disposition: Xfer Psychiatric Hosp Clinical Impression: Suicidal ideation Prescriptions: No Action No Known Home Medications RF: 0
[2019-07-18 15:51] LABS: Free T4, Direct Thyroxine 0.87 ng/dL (0.78-2.19)
[2019-07-18 16:04] LABS: Thyroid Stimulating Hormone 1.82 uIU/mL (0.47-4.68)
[2019-07-18 18:34] VITALS: BP 129/85; PULSE 88; RESP 14; O2SAT 98
== END 2019-07-18 18:50 ==
PROVIDERS: Emergency Provider Emergency Medicine
DX: R45.851 Suicidal ideations (principal)
CPT/HCPCS: 36415; 80053; 80305; 80320; 80329; 81003; 84439; 84443; 85025; 99282; 99283; G0480

== ENCOUNTER → 2019-09-04 16:24 | Outpatient (CLI) | payer OTHER, MEDICAID, SELFPAY ==
[2019-09-04 18:31] LABS: Urine Chlamydia NOT DETECTED; Urine N gonorrhoeae NOT DETECTED
[2019-09-04 18:45] LABS: Hepatitis B Surface Antigen NEGATIVE s/c (NEGATIVE)
[2019-09-04 18:57] LABS: HIV 1 & 2 Ab/Ag 4th Gen Combo NEGATIVE (NEGATIVE)
[2019-09-06 14:14] LABS: HSV 1 IgM Screen Negative (Negative); HSV 2 IgM Screen Negative (Negative)
== END ==
PROVIDERS: Visit Provider Family Medicine
DX: Z11.3 Encounter for screening for infections with a predominantly sexual mode of transmission (principal)
CPT/HCPCS: 36415; 86695; 86696; 87340; 87389; 87491; 87591

== ENCOUNTER 2019-10-29 17:07 | Emergency (ER) | payer OTHER, MEDICAID, SELFPAY ==
[2019-10-29 17:04] VITALS: BP 146/66; PULSE 121; RESP 18; TEMP 37.2; O2SAT 95; BMI 18.8
[2019-10-29 17:31] LABS: Add Manual Diff / Slide Review NO; Basophils Absolute Auto 100 /uL (0-100); Basophils Percent Auto 0.6 % (0-2); Eosinophils Absolute Auto 100 /uL (0-450); Eosinophils Percent Auto 0.5 % (2-4); Hemoglobin 14.5 g/dL (13.5-17.5); Lymphocytes Absolute Auto 2400 /uL (1100-4500); Lymphocytes Percent Auto 22.1 % (25-40); Mean Corpuscular HGB Conc 34.6 % (30-36); Mean Corpuscular Hemoglobin 29.8 PG (26-34); Mean Corpuscular Volume 86.2 fL (80-100); Monocytes Absolute Auto 500 /uL (0-900); Monocytes Percent Auto 4.2 % (3-14); Neutrophils Absolute Auto 7900 /uL (1500-7000); Neutrophils Percent Auto 72.6 % (50-75); Platelet Count 351 X10^3/uL (150-400); Red Blood Cell Count 4.87 X10^6/uL (4.5-5.9); Red Cell Distribution Width 12.6 % (11.6-14.8); White Blood Cell Count 10.9 X10^3/uL (4.5-11.0)
[2019-10-29 17:45] LABS: Alanine Aminotransferase 12 IU/L (<50); Albumin 5.2 g/dL (3.5-5.0); Albumin Globulin Ratio 1.6 (1.0-2.8); Alkaline Phosphatase 71 U/L (38-126); Aspartate Aminotransferase 26 IU/L (17-59); Bilirubin Total 0.8 mg/dL (0.2-1.3); Blood Urea Nitrogen 14 mg/dL (9-20); Calcium 10.1 mg/dL (8.4-10.2); Carbon Dioxide 28 mmol/L (22-32); Chloride 104 mmol/L (98-107); Estimated Glomerular Filt Rate > 60.0 mL/min (>60); Ethanol (ETOH) < 10 mg/dL; Globulin 3.2 g/dL (1.7-4.1); Glucose 105 mg/dL (70-100); HEMOLYSIS < 15 (0-50); Potassium 4.6 mmol/L (3.4-5.1); Sodium 142 mmol/L (137-145); Total Protein 8.4 g/dL (6.3-8.2)
--- NOTE | 2019-10-29 18:05 | ED_ITS ---
HPI - Psych <Tho Acevedo DO - Last Filed: 11/01/19 11:38> General Chief Complaint: Psychiatric Symptoms Stated Complaint: SINA Time Seen by Provider: 10/29/19 17:09 Source: patient and police Mode of arrival: Ambulatory Limitations: no limitations History of Present Illness HPI Narrative: 24-year-old male nonsmoker with history of suicidal ideation presents by police escort after he was found running in the street trying to get hit by oncoming traffic while exposing his genitalia. He denies use of alcohol or street drugs and states that he is actively suicidal with the plan of being hip bike traffic. He states that his symptoms are worsened by his home life is very reluctant to give specifics. He was seen and evaluated under similar circumstances in July and was sent to [facility] and admitted there for 1 week. He does not actively seen a mental health provider nor is he prescribed any mental medications. MD complaint: suicidal ideation Onset (ago): hour(s) Duration: constant History of same: Yes Relieving factors: none Exacerbating factors: none Context: significant life stressor Associated psychiatric symptoms: none Associated symptoms: denies other symptoms Treatments prior to arrival: none If self harm: admits thoughts of self harm and has plan Related Data Home Medications Medication Instructions Recorded Confirmed hydroxyzine HCl 25 mg tablet 25 mg PO QID PRN 07/25/19 07/25/19 mirtazapine 15 mg tablet 15 mg PO BEDTIME 07/25/19 07/25/19 Allergies Allergy/AdvReac Type Severity Reaction Status Date / Time No Known Drug Allergies Allergy Verified 10/29/19 17:08 Review of Systems <DO Zen Riley Last Filed: 11/01/19 11:38> Constitutional Constitutional: Denies chills, Denies fatigue, Denies fever(s), Denies frequent falls, Denies lethargy and Denies weakness Eyes Eyes: Denies change in vision, Denies eye discharge, Denies irritation and Denies loss of vision ENT Ears, Nose, Mouth, and Throat: Denies change in voice, Denies dizziness, Denies neck pain, Denies sore throat and Denies throat swelling Cardiovascular Cardiovascular: Denies chest pain, Denies irregular heart rhythm, Denies lightheadedness, Denies palpitations, Denies dyspnea, Denies dyspnea on exertion and Denies orthopnea Respiratory Respiratory: Denies cough, Denies dyspnea, Denies dyspnea on exertion and Denies wheezing Gastrointestinal Gastrointestinal: Denies abdominal pain, Denies change in bowel habits, Denies diarrhea, Denies nausea and Denies vomiting Genitourinary Genitourinary: Denies hematuria, Denies flank pain, Denies urinary incontinence and Denies urinary urgency Musculoskeletal Musculoskeletal: Denies back pain, Denies muscle weakness, Denies neck pain, Denies numbness and Denies tingling Integumentary/Breasts Skin/Breast: Denies pruritus, Denies erythema, Denies rash and Denies wounds Neurologic Neurologic: Denies behavioral changes, Denies confusion, Denies dizziness, Denies frequent falls, Denies loss of vision, Denies numbness, Denies tingling and Denies weakness Psychiatric Psychiatric: Denies anxiety, Denies behavioral changes, Denies confusion, Denies depression, Denies homicidal ideation and Reports suicidal ideation Endocrine Endocrine: Denies fatigue, Denies flushing and Denies palpitations Hematologic/Lymphatic Hematologic/Lymphatic: Denies easy bruising Allergic/Immunologic Allergic/Immunologic: Denies urticaria, Denies throat swelling and Denies whe ezing Patient History <Tho Acevedo DO - Last Filed: 11/01/19 11:38> Medical History Anxiety (Acute) Depression (Acute) No significant past medical history (Acute) Screen for sexually transmitted diseases (Acute) Surgical History Anesthesia (Resolved) History of appendectomy (Acute ~2012) Social History marital status: unmarried,single lives independently: No housing: house pets and animals: Yes (Dog ) education level: college occupational status: unemployed carlo/anabaptism: [employer] sexual history: 3 male partners in last year seatbelt use: always helmet use: Yes water heater temp set < 120 deg: Yes working smoke detector in home: Yes fire extinguisher in home: Yes carbon monox detector in home: Yes firearms in home: Yes do you feel safe at home: Yes in current or past relationships, have you been: other (No ) Smoking Status: Never smoker alcohol intake: current (1 wk ) substance use type: former substance user and marijuana Smoking Status: Never smoker alcohol intake frequency: 0-2 drinks per day Substance Use Type: does not use Exam <Tho Acevedo, DO - Last Filed: 11/01/19 11:38> Narrative Exam Narrative: GENERAL: [24] year old patient appears stated age. Poor eye contact, hesitant to discuss. HEAD: Atraumatic. Normocephalic. EYES: Pupils equal round and reactive. Extraocular motions intact. No scleral icterus. No injection or drainage. ENT: Nose without bleeding, purulent drainage. Throat without erythema, tonsillar hypertrophy or exudate. Airway patent. NECK: Trachea midline. Non tender CARDIOVASCULAR: tachycardic but regular rhythm without murmurs, gallops, or rubs. RESPIRATORY: Clear to auscultation. Breath sounds equal bilaterally. No wheezes, rales, or rhonchi. GASTROINTESTINAL: Abdomen soft, non-tender, nondistended. EXTREMITIES: No edema or joint tenderness. BACK: Nontender without deformity or crepitance. No flank tenderness. NEURO: AOx3. Flat affect. SKIN: No rash or erythema of visible areas Initial Vital Signs Initial Vital Signs: Vital Signs Temperature 98.9 F 10/29/19 17:04 Pulse Rate 121 H 10/29/19 17:04 Respiratory Rate 18 10/29/19 17:04 Blood Pressure 146/66 H 10/29/19 17:04 Pulse Oximetry 95 10/29/19 17:04 <Alivia Hess, DO - Last Filed: 10/31/19 01:37> Initial Vital Signs Initial Vital Signs: Vital Signs Temperature 98.9 F 10/29/19 17:04 Pulse Rate 121 H 10/29/19 17:04 Respiratory Rate 18 10/29/19 17:04 Blood Pressure 146/66 H 10/29/19 17:04 Pulse Oximetry 95 10/29/19 17:04 <Ronal Mccall, DO - Last Filed: 10/30/19 11:41> Initial Vital Signs Initial Vital Signs: Vital Signs Temperature 98.9 F 10/29/19 17:04 Pulse Rate 121 H 10/29/19 17:04 Respiratory Rate 18 10/29/19 17:04 Blood Pressure 146/66 H 10/29/19 17:04 Pulse Oximetry 95 10/29/19 17:04 Course <Tho Acevedo DO - Last Filed: 11/01/19 11:38> Orders Ordered: Discontinued Medications Acetaminophen (Tylenol) 650 mg PO NOW ONE Stop: 10/29/19 19:44 Last Admin: 10/29/19 19:50 Dose: 650 mg Documented by: ANASTASIYAFARVirginia Lorazepam (Ativan) 2 mg PO NOW ONE Stop: 10/29/19 19:54 Last Admin: 10/29/19 20:10 Dose: 2 mg Documented by: SETH Vital Signs Vital signs: Vital Signs - 8 hr 10/30/19 07:49 Temperature 98.7 F Pulse Rate 99 H Respiratory Rate 16 Blood Pressure [Left Arm] 128/70 Pulse Oximetry 100 <Alivia Hess DO - Last Filed: 10/31/19 01:37> Orders Ordered: Discontinued Medications Acetaminophen (Tylenol) 650 mg PO NOW ONE Stop: 10/29/19 19:44 Last Admin: 10/29/19 19:50 Dose: 650 mg Documented by: YANIRAL Lorazepam (Ativan) 2 mg PO NOW ONE Stop: 10/29/19 19:54 Last Admin: 10/29/19 20:10 Dose: 2 mg Documented by: SETH Vital Signs Vital signs: Vital Signs - 8 hr 10/30/19 07:49 Temperature 98.7 F Pulse Rate 99 H Respiratory Rate 16 Blood Pressure [Left Arm] 128/70 Pulse Oximetry 100 <Ronal Mccall DO - Last Filed: 10/30/19 11:41> Orders Ordered: Discontinued Medications Acetaminophen (Tylenol) 650 mg PO NOW ONE Stop: 10/29/19 19:44 Last Admin: 10/29/19 19:50 Dose: 650 mg Documented by: SETH Lorazepam (Ativan) 2 mg PO NOW ONE Stop: 10/29/19 19:54 Last Admin: 10/29/19 20:10 Dose: 2 mg Documented by: SETH Vital Signs Vital signs: Vital Signs - 8 hr 10/30/19 07:49 Temperature 98.7 F Pulse Rate 99 H Respiratory Rate 16 Blood Pressure [Left Arm] 128/70 Pulse Oximetry 100 MDM - Psych <Tho Acevedo DO - Last Filed: 11/01/19 11:38> Lab Data Result diagrams: 10/29/19 17:24 10/29/19 17:24 Labs: Lab Results 10/29/19 10/29/19 10/29/19 Range/Units 17:24 17:24 17:24 WBC 10.9 (4.5-11.0) X10^3/uL RBC 4.87 (4.5-5.9) X10^6/uL Hgb 14.5 (13.5-17.5) g/dL Hct 42.0 (41-53) % MCV 86.2 (80-100) fL MCH 29.8 (26-34) PG MCHC 34.6 (30-36) % RDW 12.6 (11.6-14.8) % Plt Count 351 (150-400) X10^3/uL Neut % (Auto) 72.6 (50-75) % Lymph % (Auto) 22.1 L (25-40) % [place] % (Auto) 4.2 (3-14) % Eos % (Auto) 0.5 L (2-4) % Baso % (Auto) 0.6 (0-2) % Neut # (Auto) 7900 H (1113-8597) /uL Lymph # (Auto) 2400 (8127-3715) /uL [place] # (Auto) 500 (0-900) /uL Eos # (Auto) 100 (0-450) /uL Baso # (Auto) 100 (0-100) /uL Sodium 142 (137-145) mmol/L Potassium 4.6 (3.4-5.1) mmol/L Chloride 104 (98-107) mmol/L Carbon Dioxide 28 (22-32) mmol/L BUN 14 (9-20) mg/dL Creatinine 1.08 (0.66-1.25) mg/dL Estimated GFR > 60.0 (>60) mL/min BUN/Creatinine Ratio 13.0 (6-22) Glucose 105 H (70-100) mg/dL Calcium 10.1 (8.4-10.2) mg/dL Total Bilirubin 0.8 (0.2-1.3) mg/dL AST 26 (17-59) IU/L ALT 12 (<50) IU/L Alkaline Phosphatase 71 (38-126) U/L Total Protein 8.4 H (6.3-8.2) g/dL Albumin 5.2 H (3.5-5.0) g/dL Globulin 3.2 (1.7-4.1) g/dL Albumin/Globulin Ratio 1.6 (1.0-2.8) TSH 1.29 (0.47-4.68) uIU/mL Urine Color Urine Appearance Urine pH (4.5-8.0) Ur Specific [place] (1.000-1.035) Urine Protein (Negative) Urine Glucose (UA) (Negative) g/dL Urine Ketones (NEGATIVE) Urine Occult Blood (Negative) Urine Nitrate (Negative) Urine Bilirubin (NEGATIVE) Urine Urobilinogen (0.2) E.U./dL Ur Leukocyte Esterase (NEGATIVE) Urine RBC (0-5/HPF) Urine WBC (0-5/HPF) Urine Bacteria (None) Urine Mucus (Negative) Ur Culture Indicated? U Opiates 300ng/mL cut (Negative) Ur Oxycodone Screen (Negative) Urine Methadone Screen (Negative) Ur Barbiturates Screen (Negative) U Tricyclic Antidepress (Negative) Ur Phencyclidine Scrn (Negative) Ur Amphetamines Screen (Negative) U Methamphetamines Scrn (Negative) Ur MDMA Scrn (Ecstasy) (Negative) U Benzodiazepines Scrn (Negative) Urine Cocaine Screen (Negative) U Marijuana (THC) Screen (Negative) Ethyl Alcohol < 10 ( - 10) mg/dL 10/29/19 10/29/19 Range/Units 18:24 18:24 WBC (4.5-11.0) X10^3/uL RBC (4.5-5.9) X10^6/uL Hgb (13.5-17.5) g/dL Hct (41-53) % MCV (80-100) fL MCH (26-34) PG MCHC (30-36) % RDW (11.6-14.8) % Plt Count (150-400) X10^3/uL Neut % (Auto) (50-75) % Lymph % (Auto) (25-40) % [place] % (Auto) (3-14) % Eos % (Auto) (2-4) % Baso % (Auto) (0-2) % Neut # (Auto) (8095-6233) /uL Lymph # (Auto) (6853-7866) /uL [place] # (Auto) (0-900) /uL Eos # (Auto) (0-450) /uL Baso # (Auto) (0-100) /uL Sodium (137-145) mmol/L Potassium (3.4-5.1) mmol/L Chloride (98-107) mmol/L Carbon Dioxide (22-32) mmol/L BUN (9-20) mg/dL Creatinine (0.66-1.25) mg/dL Estimated GFR (>60) mL/min BUN/Creatinine Ratio (6-22) Glucose (70-100) mg/dL Calcium (8.4-10.2) mg/dL Total Bilirubin (0.2-1.3) mg/dL AST (17-59) IU/L ALT (<50) IU/L Alkaline Phosphatase (38-126) U/L Total Protein (6.3-8.2) g/dL Albumin (3.5-5.0) g/dL Globulin (1.7-4.1) g/dL Albumin/Globulin Ratio (1.0-2.8) TSH (0.47-4.68) uIU/mL Urine Color Yellow Urine Appearance Clear Urine pH 8.0 (4.5-8.0) Ur Specific [place] 1.020 (1.000-1.035) Urine Protein Trace H (Negative) Urine Glucose (UA) Negative (Negative) g/dL Urine Ketones Trace H (NEGATIVE) Urine Occult Blood Negative (Negative) Urine Nitrate Negative (Negative) Urine Bilirubin Negative (NEGATIVE) Urine Urobilinogen 0.2 (0.2) E.U./dL Ur Leukocyte Esterase Negative (NEGATIVE) Urine RBC 0-1/hpf (0-5/HPF) Urine WBC 0-1/hpf (0-5/HPF) Urine Bacteria None seen (None) Urine Mucus 2+ H (Negative) Ur Culture Indicated? Cult not indicated U Opiates 300ng/mL cut Negative (Negative) Ur Oxycodone Screen Negative (Negative) Urine Methadone Screen Negative (Negative) Ur Barbiturates Screen Negative (Negative) U Tricyclic Antidepress Negative (Negative) Ur Phencyclidine Scrn Negative (Negative) Ur Amphetamines Screen Negative (Negative) U Methamphetamines Scrn Negative (Negative) Ur MDMA Scrn (Ecstasy) Negative (Negative) U Benzodiazepines Scrn Negative (Negative) Urine Cocaine Screen Negative (Negative) U Marijuana (THC) Screen Positive H (Negative) Ethyl Alcohol ( - 10) mg/dL <Alivia Hess, DO - Last Filed: 10/31/19 01:37> Lab Data Attestation: I reviewed the patient's lab results. Labs: Lab Results 10/29/19 10/29/19 10/29/19 Range/Units 17:24 17:24 17:24 WBC 10.9 (4.5-11.0) X10^3/uL RBC 4.87 (4.5-5.9) X10^6/uL Hgb 14.5 (13.5-17.5) g/dL Hct 42.0 (41-53) % MCV 86.2 (80-100) fL MCH 29.8 (26-34) PG MCHC 34.6 (30-36) % RDW 12.6 (11.6-14.8) % Plt Count 351 (150-400) X10^3/uL Neut % (Auto) 72.6 (50-75) % Lymph % (Auto) 22.1 L (25-40) % [place] % (Auto) 4.2 (3-14) % Eos % (Auto) 0.5 L (2-4) % Baso % (Auto) 0.6 (0-2) % Neut # (Auto) 7900 H (7854-7404) /uL Lymph # (Auto) 2400 (4507-2952) /uL [place] # (Auto) 500 (0-900) /uL Eos # (Auto) 100 (0-450) /uL Baso # (Auto) 100 (0-100) /uL Sodium 142 (137-145) mmol/L Potassium 4.6 (3.4-5.1) mmol/L Chloride 104 (98-107) mmol/L Carbon Dioxide 28 (22-32) mmol/L BUN 14 (9-20) mg/dL Creatinine 1.08 (0.66-1.25) mg/dL Estimated GFR > 60.0 (>60) mL/min BUN/Creatinine Ratio 13.0 (6-22) Glucose 105 H (70-100) mg/dL Calcium 10.1 (8.4-10.2) mg/dL Total Bilirubin 0.8 (0.2-1.3) mg/dL AST 26 (17-59) IU/L ALT 12 (<50) IU/L Alkaline Phosphatase 71 (38-126) U/L Total Protein 8.4 H (6.3-8.2) g/dL Albumin 5.2 H (3.5-5.0) g/dL Globulin 3.2 (1.7-4.1) g/dL Albumin/Globulin Ratio 1.6 (1.0-2.8) TSH 1.29 (0.47-4.68) uIU/mL Urine Color Urine Appearance Urine pH (4.5-8.0) Ur Specific [place] (1.000-1.035) Urine Protein (Negative) Urine Glucose (UA) (Negative) g/dL Urine Ketones (NEGATIVE) Urine Occult Blood (Negative) Urine Nitrate (Negative) Urine Bilirubin (NEGATIVE) Urine Urobilinogen (0.2) E.U./dL Ur Leukocyte Esterase (NEGATIVE) Urine RBC (0-5/HPF) Urine WBC (0-5/HPF) Urine Bacteria (None) Urine Mucus (Negative) Ur Culture Indicated? U Opiates 300ng/mL cut (Negative) Ur Oxycodone Screen (Negative) Urine Methadone Screen (Negative) Ur Barbiturates Screen (Negative) U Tricyclic Antidepress (Negative) Ur Phencyclidine Scrn (Negative) Ur Amphetamines Screen (Negative) U Methamphetamines Scrn (Negative) Ur MDMA Scrn (Ecstasy) (Negative) U Benzodiazepines Scrn (Negative) Urine Cocaine Screen (Negative) U Marijuana (THC) Screen (Negative) Ethyl Alcohol < 10 ( - 10) mg/dL 10/29/19 10/29/19 Range/Units 18:24 18:24 WBC (4.5-11.0) X10^3/uL RBC (4.5-5.9) X10^6/uL Hgb (13.5-17.5) g/dL Hct (41-53) % MCV (80-100) fL MCH (26-34) PG MCHC (30-36) % RDW (11.6-14.8) % Plt Count (150-400) X10^3/uL Neut % (Auto) (50-75) % Lymph % (Auto) (25-40) % [place] % (Auto) (3-14) % Eos % (Auto) (2-4) % Baso % (Auto) (0-2) % Neut # (Auto) (1697-0833) /uL Lymph # (Auto) (7974-1268) /uL [place] # (Auto) (0-900) /uL Eos # (Auto) (0-450) /uL Baso # (Auto) (0-100) /uL Sodium (137-145) mmol/L Potassium (3.4-5.1) mmol/L Chloride (98-107) mmol/L Carbon Dioxide (22-32) mmol/L BUN (9-20) mg/dL Creatinine (0.66-1.25) mg/dL Estimated GFR (>60) mL/min BUN/Creatinine Ratio (6-22) Glucose (70-100) mg/dL Calcium (8.4-10.2) mg/dL Total Bilirubin (0.2-1.3) mg/dL AST (17-59) IU/L ALT (<50) IU/L Alkaline Phosphatase (38-126) U/L Total Protein (6.3-8.2) g/dL Albumin (3.5-5.0) g/dL Globulin (1.7-4.1) g/dL Albumin/Globulin Ratio (1.0-2.8) TSH (0.47-4.68) uIU/mL Urine Color Yellow Urine Appearance Clear Urine pH 8.0 (4.5-8.0) Ur Specific [place] 1.020 (1.000-1.035) Urine Protein Trace H (Negative) Urine Glucose (UA) Negative (Negative) g/dL Urine Ketones Trace H (NEGATIVE) Urine Occult Blood Negative (Negative) Urine Nitrate Negative (Negative) Urine Bilirubin Negative (NEGATIVE) Urine Urobilinogen 0.2 (0.2) E.U./dL Ur Leukocyte Esterase Negative (NEGATIVE) Urine RBC 0-1/hpf (0-5/HPF) Urine WBC 0-1/hpf (0-5/HPF) Urine Bacteria None seen (None) Urine Mucus 2+ H (Negative) Ur Culture Indicated? Cult not indicated U Opiates 300ng/mL cut Negative (Negative) Ur Oxycodone Screen Negative (Negative) Urine Methadone Screen Negative (Negative) Ur Barbiturates Screen Negative (Negative) U Tricyclic Antidepress Negative (Negative) Ur Phencyclidine Scrn Negative (Negative) Ur Amphetamines Screen Negative (Negative) U Methamphetamines Scrn Negative (Negative) Ur MDMA Scrn (Ecstasy) Negative (Negative) U Benzodiazepines Scrn Negative (Negative) Urine Cocaine Screen Negative (Negative) U Marijuana (THC) Screen Positive H (Negative) Ethyl Alcohol ( - 10) mg/dL ECG Data Attestation: I personally reviewed and interpreted this ECG as follows: Interpretation: Sinus rhythm rate 84 P are 134 QRS 82 and QTC of 401. Sinus arrhythmia with sinus rhythm. MDM Narrative Medical decision making narrative: Patient signed out to myself by Dr. Acevedo. Patient's lab do not show any major abnormalities trace protein and ketones in his urine ETOH is negative, patient is positive for marijuana but no other illicit. Heart rates improved to the 80s an EKG shows a sinus rhythm sinus ar rhythmia. Patient was seen by myself. His mother is at bedside at this time. He states that he is very much interested in placement at this time. Patient is medically cleared. Patient has been mildly agitated at times and asking multiple times if he was going to senior care. Discussed that we do not anticipate that at this time. Given ativan 2mg po and tylenol as he was complaining of hurting all over. Chart faxed to [facility] 1999, awaiting callback. [facility] will not evaluate without social work input or [facility] eval, [place] left message, no answer at [facility]. Patient case being reviewed 0530am by industrial psychology teacher at [facility]. They will contact us back. Social work consult was placed in the even that patient does not qualify for placement at [facility]. Patient signed out to Dr. Mccall while awaiting possible placement. Patient has been sleeping most of the night. <Ronal Mccall, DO - Last Filed: 10/30/19 11:41> Lab Data Labs: Lab Results 10/29/19 10/29/19 10/29/19 Range/Units 17:24 17:24 17:24 WBC 10.9 (4.5-11.0) X10^3/uL RBC 4.87 (4.5-5.9) X10^6/uL Hgb 14.5 (13.5-17.5) g/dL Hct 42.0 (41-53) % MCV 86.2 (80-100) fL MCH 29.8 (26-34) PG MCHC 34.6 (30-36) % RDW 12.6 (11.6-14.8) % Plt Count 351 (150-400) X10^3/uL Neut % (Auto) 72.6 (50-75) % Lymph % (Auto) 22.1 L (25-40) % [place] % (Auto) 4.2 (3-14) % Eos % (Auto) 0.5 L (2-4) % Baso % (Auto) 0.6 (0-2) % Neut # (Auto) 7900 H (9488-4575) /uL Lymph # (Auto) 2400 (3104-6136) /uL [place] # (Auto) 500 (0-900) /uL Eos # (Auto) 100 (0-450) /uL Baso # (Auto) 100 (0-100) /uL Sodium 142 (137-145) mmol/L Potassium 4.6 (3.4-5.1) mmol/L Chloride 104 (98-107) mmol/L Carbon Dioxide 28 (22-32) mmol/L BUN 14 (9-20) mg/dL Creatinine 1.08 (0.66-1.25) mg/dL Estimated GFR > 60.0 (>60) mL/min BUN/Creatinine Ratio 13.0 (6-22) Glucose 105 H (70-100) mg/dL Calcium 10.1 (8.4-10.2) mg/dL Total Bilirubin 0.8 (0.2-1.3) mg/dL AST 26 (17-59) IU/L ALT 12 (<50) IU/L Alkaline Phosphatase 71 (38-126) U/L Total Protein 8.4 H (6.3-8.2) g/dL Albumin 5.2 H (3.5-5.0) g/dL Globulin 3.2 (1.7-4.1) g/dL Albumin/Globulin Ratio 1.6 (1.0-2.8) TSH 1.29 (0.47-4.68) uIU/mL Urine Color Urine Appearance Urine pH (4.5-8.0) Ur Specific [place] (1.000-1.035) Urine Protein (Negative) Urine Glucose (UA) (Negative) g/dL Urine Ketones (NEGATIVE) Urine Occult Blood (Negative) Urine Nitrate (Negative) Urine Bilirubin (NEGATIVE) Urine Urobilinogen (0.2) E.U./dL Ur Leukocyte Esterase (NEGATIVE) Urine RBC (0-5/HPF) Urine WBC (0-5/HPF) Urine Bacteria (None) Urine Mucus (Negative) Ur Culture Indicated? U Opiates 300ng/mL cut (Negative) Ur Oxycodone Screen (Negative) Urine Methadone Screen (Negative) Ur Barbiturates Screen (Negative) U Tricyclic Antidepress (Negative) Ur Phencyclidine Scrn (Negative) Ur Amphetamines Screen (Negative) U Methamphetamines Scrn (Negative) Ur MDMA Scrn (Ecstasy) (Negative) U Benzodiazepines Scrn (Negative) Urine Cocaine Screen (Negative) U Marijuana (THC) Screen (Negative) Ethyl Alcohol < 10 ( - 10) mg/dL 10/29/19 10/29/19 Range/Units 18:24 18:24 WBC (4.5-11.0) X10^3/uL RBC (4.5-5.9) X10^6/uL Hgb (13.5-17.5) g/dL Hct (41-53) % MCV (80-100) fL MCH (26-34) PG MCHC (30-36) % RDW (11.6-14.8) % Plt Count (150-400) X10^3/uL Neut % (Auto) (50-75) % Lymph % (Auto) (25-40) % [place] % (Auto) (3-14) % Eos % (Auto) (2-4) % Baso % (Auto) (0-2) % Neut # (Auto) (1565-6777) /uL Lymph # (Auto) (3724-7367) /uL [place] # (Auto) (0-900) /uL Eos # (Auto) (0-450) /uL Baso # (Auto) (0-100) /uL Sodium (137-145) mmol/L Potassium (3.4-5.1) mmol/L Chloride (98-107) mmol/L Carbon Dioxide (22-32) mmol/L BUN (9-20) mg/dL Creatinine (0.66-1.25) mg/dL Estimated GFR (>60) mL/min BUN/Creatinine Ratio (6-22) Glucose (70-100) mg/dL Calcium (8.4-10.2) mg/dL Total Bilirubin (0.2-1.3) mg/dL AST (17-59) IU/L ALT (<50) IU/L Alkaline Phosphatase (38-126) U/L Total Protein (6.3-8.2) g/dL Albumin (3.5-5.0) g/dL Globulin (1.7-4.1) g/dL Albumin/Globulin Ratio (1.0-2.8) TSH (0.47-4.68) uIU/mL Urine Color Yellow Urine Appearance Clear Urine pH 8.0 (4.5-8.0) Ur Specific [place] 1.020 (1.000-1.035) Urine Protein Trace H (Negative) Urine Glucose (UA) Negative (Negative) g/dL Urine Ketones Trace H (NEGATIVE) Urine Occult Blood Negative (Negative) Urine Nitrate Negative (Negative) Urine Bilirubin Negative (NEGATIVE) Urine Urobilinogen 0.2 (0.2) E.U./dL Ur Leukocyte Esterase Negative (NEGATIVE) Urine RBC 0-1/hpf (0-5/HPF) Urine WBC 0-1/hpf (0-5/HPF) Urine Bacteria None seen (None) Urine Mucus 2+ H (Negative) Ur Culture Indicated? Cult not indicated U Opiates 300ng/mL cut Negative (Negative) Ur Oxycodone Screen Negative (Negative) Urine Methadone Screen Negative (Negative) Ur Barbiturates Screen Negative (Negative) U Tricyclic Antidepress Negative (Negative) Ur Phencyclidine Scrn Negative (Negative) Ur Amphetamines Screen Negative (Negative) U Methamphetamines Scrn Negative (Negative) Ur MDMA Scrn (Ecstasy) Negative (Negative) U Benzodiazepines Scrn Negative (Negative) Urine Cocaine Screen Negative (Negative) U Marijuana (THC) Screen Positive H (Negative) Ethyl Alcohol ( - 10) mg/dL MDM Narrative Medical decision making narrative: Dr mccall: Received turnover from Dr hess: reviewed history and physical. Patient was evaluated by social work. They agree that patient requires inpatient stay. Patient has been voluntary. Is medically cleared. Will transport to [facility]. Patient is stable for transfer. Discharge Plan Departure Patient Disposition: Xfer Psychiatric Hosp Clinical Impression: Suicidal ideation Discharge Date/Time: 10/30/19 13:00
--- NOTE | 2019-10-29 18:10 | PC.NURSE ---
Patient states I hear like my voice going over and over in my head. Like you are fucking stupid kill yourself. But I know it is my voice. My mom keeps telling me I am making her insane. I am insane I need help Patient tearful, but cooperative. Constantly apologizing.
--- NOTE | 2019-10-29 18:13 | PC.NURSE ---
Mother called at patient request and on her way
--- NOTE | 2019-10-29 18:20 | PC.NURSE ---
Patient has been increasingly more agitated over the past 15minutes. He is now talking to himself but still cooperating.
[2019-10-29 18:21] LABS: Thyroid Stimulating Hormone 1.29 uIU/mL (0.47-4.68)
--- NOTE | 2019-10-29 18:30 | PC.NURSE ---
pts mother is in room. 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
[2019-10-29 18:39] LABS: Bacteria Urine None Seen
[2019-10-29 18:40] LABS: Appearance Urine UA CLEAR; Bilirubin Urine UA NEGATIVE (NEGATIVE); Color Urine UA YELLOW; Glucose Urine UA NEGATIVE (Negative); Ketones Urine UA TRACE (NEGATIVE); Leukocyte Esterase Urine UA NEGATIVE (NEGATIVE); Nitrite Urine UA NEGATIVE (Negative); Occult Blood Urine UA NEGATIVE (Negative); Protein Urine UA TRACE (Negative); UR Morphine/Opiate cutoff 300 Negative (Negative); Ur Creatinine Normal (Normal); Ur Specific Gravity Normal (Normal); Urine Amphetamines Negative (Negative); Urine Barbiturates Negative (Negative); Urine Benzodiazepines Negative (Negative); Urine Cocaine Negative (Negative); Urine MDMA Negative (Negative); Urine Methadone Negative (Negative); Urine Methamphetamines Negative (Negative); Urine Oxycodone Negative (Negative); Urine Phencyclidine Negative (Negative); Urine Tetrahydrocannabinol Positive (Negative); Urine Tricyclic Antidepressant Negative (Negative); Urine pH Normal (Normal); Urobilinogen Urine UA 0.2 E.U./dL (0.2)
--- NOTE | 2019-10-29 18:47 | PC.NURSE ---
pt sitting on mattress with their mom. Pt is very tearful and consistently embracing their mom
[2019-10-29 18:50] LABS: Culture Indicated Urine Cult Not Indicated; Mucus Urine 2+ (Negative); RBC Urine 0-1/HPF (0-5/HPF); WBC Urine 0-1/HPF (0-5/HPF)
--- NOTE | 2019-10-29 19:42 | PC.NURSE ---
Pt states generalized pain everywhere in body, appears agitated and anxious with mom at bedside. Dr. Jovel aware and ordered tylenol and ativan po given to pt.
[2019-10-29] MEDS: ACETAMINOPHEN 325 MG TABLET 650 MG PO (19:50)
--- NOTE | 2019-10-29 19:50 | PC.NURSE ---
RN in room to give po tylenol. PT was offered food and additional drink pt declined. Mom at bedside.
--- NOTE | 2019-10-29 20:00 | PC.NURSE ---
Patient was asked to remove his jewelry for safety. He removed his earrings and necklace, but refused to remove his naval piercing stating it would close up. I put the other jewelry in a specimen cup and patients mother was going to hold onto them for him.
[2019-10-29 20:08] VITALS: BP 140/92; PULSE 80; RESP 16; O2SAT 98
[2019-10-29] MEDS: LORazepam 0.5 MG TABLET 2 MG PO (20:10)
--- NOTE | 2019-10-29 21:39 | PC.NURSE ---
Patient has been in the room practicing stretching to accomplish the splits. He is also talking gibberish to himself and acting like he is holding a conversation with someone else in the room.
[2019-10-29 23:30] VITALS: BP 127/64; PULSE 85; RESP 12; O2SAT 96
[2019-10-30 07:49] VITALS: BP 128/70; PULSE 99; RESP 16; TEMP 37.1; O2SAT 100
--- NOTE | 2019-10-30 08:35 | PC.NURSE ---
PT becoming agitated with mom at bedside beginning to raise his voice and use profanity, mom stepped out of room and stated she will check back in with pt in a while. PT lying on bed calm after mom left room.
--- NOTE | 2019-10-30 08:41 | PC.NURSE ---
MALINDA Melara and MALINDA De Leon in room speaking with pt.
--- NOTE | 2019-10-30 08:50 | PC.NURSE ---
Pt requesting to call Brother, pt attempted to call brother with no answer.
--- NOTE | 2019-10-30 09:00 | PC.NURSE ---
Addendum entered by Negar Brothers R.N. 10/30/19 09:08: Pt mom called back and requested to be contacted and updated on pt status and potential transfer after [employer]ISHER consult. Pt consented to updating mom, mom is currently in hospital waiting room. Original Note: Pt mom called back and requested to be contacted and updated on pt status after [employer]ER consult and
--- NOTE | 2019-10-30 09:44 | CM.SWNOTE ---
INSOLE STIFFENER Note INSOLE STIFFENER - Aging Department Supervisor Assessment- Emergency Department Start: 10/30/19 08:56 Freq: Status: Active Protocol: Document 10/30/19 08:56 ITZEL (Rec: 10/30/19 09:39 ITZEL [id number]) INSOLE STIFFENER/Aging Department Supervisor Assessment Start date 10/30/19 Visit Start Time 08:30 End date 10/30/19 Visit End Time 08:55 Total time Care Management spent on 25 patient visit-in minutes Presenting Problem Patient brought in to ED by [place] [employer] with suicide ideation. Patient said he was thinking about stepping into traffic. Patient states he thinks about suicide all the time and says that that it's really easy to kill yourself. Precipitating Event(s) Patient did not cite any specific event that precipitated current visit to ED. Current Behavioral Health Provider(s) Patient sees Dr. Nguyen at [facility], Provider, Ph. # [facility]- PCP- [phone] Patient has had one visit with Dr. Andrews- Psychiatrist- [facility]- [phone] Psych. Hx Mental Health and Chemical Patient has seen psychiatrist Dependency but did not report any mental health diagnoses. Patient disclosed use of marijuana previous day. Patient states that he smokes marijuana daily . Patient denies use of alcohol or other substances. Family Hx of Behavioral Abuse Patient currenly lives with parents and says that his parents fight a lot. Patient reports that parents have called him worthless due to him not having employment. Psychiatric Hospitalizations (date(s)/ Patient was hospitalized in location) July 2019. [place] Support System(s) Patients mother was in ED with him intermittently. Patient describes a brother as a potential support. School/Work Patient currently does not work and is interested in support around employment search and attainment. Legal Matters - Outstanding Issues None reported Orientation (Person/Place/Time) Oriented to person place time. Affect Mostly appropriate for context . Thought Content - Specify/Describe Obsessions around suicide and Obsessions, Delusions, Hallucinations employment. Patient states that he is thinking about suicide all the time, and provided several examples of thoughts he had about suicide. When asked to describe thoughts of suicide patient easily responded that he thinks I could just stay in bed, or I could jump off a balcony. Thought Processes (Hospgtp-Nkupfyxy-Kxvt Disorganized Akyuyfls-Eyocljui-Nfdqfsvpuo- Rwcmezjbcntzug-Rzryrzn-Vimkspylcnch- Thought Blocking) Speech (Lwruji-Xacb-Xznoiso-Rapid-Soft- Normal rate and strained. Loud-Pressured) Motor (Qcilrk-Nrrhdmpya-Gvqb-Other) Normal for context. Insight (Present-Partially Present- Impaired Impaired) Judgement (Intact-Impaired) Impaird. Impulse Control (Adequate-Impaired) Impaired. Memory (Cwgyawllp-Wciuuk-Qdggxd, Intact Impaired-Intact) Concentration (Intact-Impaired) Intact Attention (Intact-Impaired) Intact. Behavior (Appropriate-Inappropriate) Patient was cooperative and calm during assessment. Appropriate behavior for context. Additional Comment Patient appears and and sounded younger than stated age. Suicidal Ideation (Plan) Yes Homicidal Ideation (Plan) No: None reported Comment During assessment patient discussed wanting to throw [ him]self into traffic and wanting to jump off of a balcony. Intervention INSOLE STIFFENER recommends inpatient behavioral health hospitalization. RA Plan INSOLE STIFFENER will seek voluntary placement for patient.
--- NOTE | 2019-10-30 10:12 | CM.SWNOTE ---
MORTGAGE ANALYST note MORTGAGE ANALYST called inpatient hospitals seeking bed for patient. MORTGAGE ANALYST followed up with Neil Estrada, who said patient's file was under review and that they would follow up with MORTGAGE ANALYST after review. MORTGAGE ANALYST called [facility] and [facility]. Both had no beds available. MORTGAGE ANALYST called [facility]. Potential bed available in [place]. Faxed packet to [place] at 1115am and [place] to call MORTGAGE ANALYST before 1200. MALINDA Strong
--- NOTE | 2019-10-30 11:15 | PC.NURSE ---
[facility] 1115 1:1 sitter present. The patient is calm and able to voice needs. The patient has been laying quietly on his side. He got up and stretched for several minutes. The patient mumbles to himself on and off, the WORKERS COMPENSATION CLAIMS ASSISTANT is not able to hear what he's saying, but he does not appear agitated. Warm blankets and water given, ADLs assessed, will continue to monitor.
--- NOTE | 2019-10-30 11:24 | CM.SWNOTE ---
TRAY FILLER note TRAY FILLER received call from Kathrin at [facility] who accepted patient for inpatient hospitalization at facility. Check in time 2pm 10/30/19, accepting provider Jerod RAMOS, Nurse to Nurse [phone]. [facility] [place] transport. TRAY FILLER informed Dr. Mccall, RN Mirela, and TOM Banuelos of plan. TRAY FILLER then informed patient of placement. Patient expressed relief and willingness when informed of plan. TRAY FILLER informed patient that RN had said that patient's mother wanted to be informed of placement before patient leaves . TRAY FILLER confirmed consent to contact patient's mother to inform her of plan of care. TRAY FILLER called patient's mother. Patient's mother thankful for news of placement at inpatient setting. Mother said that patient had been suicidal for years and that she had been disappointed by the brevity of the intervention during last hospitalization. Mother states that she will come to within hour to see patient. Plan: patient to transfer to [facility] by 2pm 10/30/19. MALINDA Strong
--- NOTE | 2019-10-30 12:22 | PC.NURSE ---
Report given to RADHA Goyal [place] [facility] [place]
== END 2019-10-30 13:00 ==
PROVIDERS: Emergency Medicine; Emergency Provider Emergency Medicine
DX: R45.851 Suicidal ideations (principal)
CPT/HCPCS: 80053; 80305; 80320; 81001; 84443; 85025; 93005; 99284